=== PATIENT | female | born 1980 | race Caucasian/White ===

== ENCOUNTER 2017-02-06 01:13 | Emergency (ER) | payer BC ==
[~2017-02-06] VITALS: Ht 180.3 cm; Wt 89.2 kg
[2017-02-06 01:19] VITALS: TEMP 36.5; Ht 180.3 cm; Wt 89.2 kg
[2017-02-06] MEDS ORDERED: LIDO/EPINEPHRINE/SOD BICARB 20 ML VIAL INFIL ONE (01:32)
[2017-02-06] MEDS ORDERED: MULT-506 PO (01:47)
[2017-02-06] MEDS ORDERED: DIPHTHERIA/TETANUS/PERTUSSIS 0.5 ML SYR/VIAL IM. ONE (02:00)
--- NOTE | 2017-02-06 02:10 | EMERGENCY ROOM VISIT NOTE ---
ED Visit Note First contact with patient: 01:59 CHIEF COMPLAINT: Left wrist laceration HISTORY OF PRESENT ILLNESS: This 36-year-old patient presents to the emergency department with friend after cutting the left wrist on a piece of glass while she is cleaning up a broken piece of glass from the table. The bleeding has not stopped. Denies weakness or numbness of the extremity. patient has full range of motion of the extremity The patient rates the pain as mi8ld and 3/10. The patient denies any other injuries. The patient's tetanus shot is not up to date. REVIEW OF SYSTEMS: A 6 system review of systems was completed with positives and pertinent negatives listed in the HPI. ALLERGIES: None MEDICATIONS: None PMH: Knee surgery SOCIAL HISTORY: No drug use PHYSICAL EXAM: Vital Signs: Reviewed Nurse's notes, vital signs stable. GENERAL : Pleasant female, in no acute distress, well developed, well nourished. SKIN: There is a 4 cm jagged left wrist laceration and a one cm long lacerations on the left wrist. The edges gape apart with traction. There is no foreign material in the wounds and it looks clean. There is bleeding. No deep structures such as tendons, bones, or significant blood vessels are seen in the base of the wounds. Extension and flexion of the extremity is full and strong. Full range of motion of the extremity. Capillary refill less than 2 seconds. Normal sensation to light and sharp touch. EMERGENCY DEPARTMENT COURSE: I examined the patient. Using sterile technique the wound was cleansed with Betadine. 5 ml of 1% buffered lidocaine with epi was used to anesthetize the patient. The area was sterilely draped. Once the patient was anesthetized, the wounds were copiously irrigated under pressure with sterile saline. The wounds were explored and there were no deep structures injured. The larger laceration was repaired using 14 simple interrupted 4-0 nylon sutures. Steri-Strips were applied to the 1 cm laceration that was not gaping and hemostasis was achieved The patient tolerated the procedure well. Hemostasis was achieved. The area was cleaned with sterile saline and dressed with bacitracin ointment and bandage. The patient was given a tetanus booster. Patient was placed in a wrist lacer for comfort and for stabilization of the wrist as the laceration is over the wrist. Norvasc status is rechecked after placement and is intact. Patient was advised to wear this throughout the day to help stabilize the wrist over the bacitracin and bandage so the laceration can heal. Patient was informed as this is a superficial laceration and skin avulsion that some of the skin may necrose off and become nonviable. Patient verbalized understanding of this. The patient was discharged home in good condition. Differential diagnosis includes laceration, tendon injury, vascular injury and other etiologies were considered. DIAGNOSIS: #1 left wrist laceration #2 left wrist superficial laceration DISCHARGE INSTRUCTIONS & TREATMENT as below Current/Historical Medications Scheduled Multivitamin (Multivitamin), 1 TAB PO DAILY Allergies Coded Allergies: No Known Allergies (Unverified , 02/06/17) Vital Signs Date Time Temp Pulse Resp B/P (MAP) Pulse Ox O2 Delivery O2 Flow Rate FiO2 02/06/17 01:19 36.5 102 18 106/67 97 Room Air Departure Information Impression Primary Impression: Laceration of left wrist without complication Dispostion Home / Self-Care Condition GOOD Forms HOME CARE DOCUMENTATION FORM, IMPORTANT VISIT INFORMATION Patient Instructions [facility], ED Laceration All Additional Instructions Wear wrist lacer throughout the day to help immobilize your laceration. Do not have it so tight that you cannot feel your fingers. Keep wound clean and dry. Do not allow any crusting or dried blood to accumulate on sutures. If this occurs, use a 1:1 solution of hydrogen peroxide/ water on a Q-tip to clean the wound. Use an antibiotic ointment for 3-4 days, then let wound dry. Suture removal in 10-12 days. Return sooner for any signs of infection (increasing redness, swelling, drainage). Ice and elevate for swelling and pain. Ibuprofen 600 mg and Tylenol 500 mg every 6 hrs for pain. Keep covered when in sun until sutures removed then SPF 50 or higher for one year. Vitamin E oil if desired two weeks after suture removal for reduction of scar
[2017-02-06 02:19] VITALS: BP 115/71; PULSE 79; O2SAT 98
== END 2017-02-06 02:20 | disposition home or self-care (01) ==
LOC: C.EDB 01:14 → C.EDA 02:20
DX: S61.512A Laceration without foreign body of left wrist, initial encounter (principal); Z23 Encounter for immunization; W25.XXXA Contact with sharp glass, initial encounter